=== PATIENT | female | born 1990 | race Two or more races ===

== ENCOUNTER 2017-06-03 20:04 | Emergency (ER) | payer MEDICAID, OTHER ==
[~2017-06-03] VITALS: Ht 160 cm; Wt 88.5 kg
[2017-06-03 20:14] VITALS: BP 144/99
== END 2017-06-04 00:32 | disposition home or self-care (01) ==
LOC: ER 20:04
DX: S93.402A Sprain of unspecified ligament of left ankle, initial encounter (principal); X50.1XXA Overexertion from prolonged static or awkward postures, initial encounter; Y93.61 Activity, american tackle football; Y92.89 Other specified places as the place of occurrence of the external cause; Y99.8 Other external cause status
CPT/HCPCS: 29515; 73610; 81025